=== PATIENT | female | born 1980 | race Caucasian/White ===

== ENCOUNTER 2016-07-10 13:57 | Emergency (ER) | payer OTHER ==
[2016-07-10 16:58] VITALS: BP 116/81
--- NOTE | 2016-07-10 17:09 | UC ---
Bite Injury/Animal HPI - HPI Summary HPI Summary: complaint of cat bite and scratch on her right arm that occurred today cat has been fully vaccinated against rabies right arm is slightly painful put antibiotic ointment on bite today took some aleve today for pain - History of Current Complaint Chief Complaint: UCLaceration Stated Complaint: CAT BITE Time Seen by Provider: 07/10/16 17:03 Hx Obtained From: Patient Hx Last Menstrual Period: now - Allergies/Home Medications Allergies/Adverse Reactions: Allergies Allergy/AdvReac Type Severity Reaction Status Date / Time Tramadol Allergy Dizziness Verified 07/10/16 15:20 Home Medications: Home Medications Cholecalciferol [Vitamin D] 5,000 unit PO 07/10/16 [History] FLUoxetine CAP* [Prozac CAP*] 07/10/16 [History] Lactobacillus [Probiotic] 1 cap PO 07/10/16 [History] Progesterone Micronized [Progesterone] 07/10/16 [History Confirmed 07/10/16] hydrOXYzine HCL TAB* [Atarax 10 MG TAB*] PRN 07/10/16 [History] PMH/Surg Hx/FS Hx/Imm Hx Previously Healthy: Yes - PCOS, endometriosis Endocrine History Of: Denies: Diabetes Cardiovascular History Of: Denies: Hypertension, Pacemaker/ICD GI/ History Of: Denies: Renal Disease - Surgical History Surgical History: Yes Surgery Procedure, Year, and Place: TMJ. TUBAL - Family History Known Family History: Positive: Hypertension Negative: Cardiac Disease, Diabetes - Social History Occupation: Employed Full-time Lives: With Family Alcohol Use: Occasionally Substance Use Type: Prescribed Smoking Status (MU): Never Smoked Tobacco - Immunization History Most Recent Tetanus Shot: 2008 Review of Systems Constitutional: Negative Skin: Negative Eyes: Negative ENT: Negative Respiratory: Negative Cardiovascular: Negative Gastrointestinal: Negative Genitourinary: Negative Motor: Negative Neurovascular: Negative Musculoskeletal: Other: - rifght arm pain- cat bite Neurological: Negative Psychological: Negative All Other Systems Reviewed And Are Negative: Yes Physical Exam Triage Information Reviewed: Yes Appearance: No Pain Distress, Well-Nourished Vital Signs: Initial Vital Signs Temp 97.6 F 07/10/16 15:14 Pulse 67 07/10/16 15:14 Resp 18 07/10/16 15:14 BP 112/69 07/10/16 15:14 Pulse Ox 100 07/10/16 15:14 Vital Signs Reviewed: Yes Eyes: Positive: Conjunctiva Clear ENT: Positive: Pharynx normal, TMs normal Neck: Positive: No Lymphadenopathy Respiratory: Positive: Lungs clear, Normal breath sounds, No respiratory distress, No accessory muscle use Cardiovascular: Positive: RRR, No Murmur, Pulses Normal Abdomen Description: Positive: Nontender, Soft Bowel Sounds: Positive: Present Musculoskeletal Exam: Normal Neurological Exam: Normal Psychological Exam: Normal Skin: Positive: Other - RUE- several puncture wounds on forearm, no edema or erythema surrounding bites Bite Injury Course/Dx - Differential Dx/Diagnosis Differential Diagnosis/HQI/PQRI: Puncture Provider Diagnoses: punture wound- right arm -cat bite Discharge - Discharge Plan Condition: Stable Disposition: HOME Prescriptions: Amoxicillin/Clavulanate TAB* [Augmentin TAB 875*] 875 mg PO BID #20 tab Patient Education Materials: Animal Bite (ED) Referrals: Brandon Goldman MD [Primary Care Provider] - Additional Instructions: Please take antibiotic as directed Increase fluids and rest please return to urgent care if you have any increase in pain, redness, swelling or develop fever Take acetaminophen or ibuprofen for fever or pain Please review your discharge instructions. If your symptoms do not improve please call your primary care provider or return to urgent care.
== END 2016-07-10 17:20 | disposition home or self-care (01) ==
LOC: UCEAST 13:57
DX: S51.831A Puncture wound without foreign body of right forearm, initial encounter (principal); W55.01XA Bitten by cat, initial encounter; Y93.9 Activity, unspecified; Y92.9 Unspecified place or not applicable; Z88.5 Allergy status to narcotic agent
CPT/HCPCS: 99212; G0463

== ENCOUNTER 2018-09-01 18:11 | Emergency (ER) | payer OTHER ==
[2018-09-01 19:04] VITALS: BP 145/99
[2018-09-01] MEDS ORDERED: Tetan/Diph/Pertus SYR(Tdap)* 0.5 ML SYR(BOOSTRIX) use SYR IM ONE (19:26)
--- NOTE | 2018-09-01 20:06 | UC ---
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 States she was recovering a patient from anesthesia when the dog panicked and bit her proximal forearm at the elbow. States she was wearing a protective sleeve at the time. Reports multiple bruises and abrasions at the site of the bite. States she has full painless range of motion to the elbow. Denies any numbness or tingling to the extremity. Last tetanus was in 2008. - History of Current Complaint Chief Complaint: UCBiteInjury Stated Complaint: DOG BITE Time Seen by Provider: 09/01/18 19:46 Hx Obtained From: Patient Hx Last Menstrual Period: now Pain Intensity: 4 - Allergies/Home Medications Allergies/Adverse Reactions: Allergies Allergy/AdvReac Type Severity Reaction Status Date / Time tramadol Allergy Difficulty Verified 09/01/18 19:05 Breathing Home Medications: Home Medications methylPREDNISolone TAB* [Medrol TAB*] 20 mg PO DAILY 09/01/18 [History Confirmed 09/01/18] PMH/Surg Hx/FS Hx/Imm Hx Previously Healthy: Yes - Denies significant PMH - Surgical History Surgical History: Yes Surgery Procedure, Year, and Place: TMJ. TUBAL - Family History Known Family History: Positive: Hypertension Negative: Cardiac Disease, Diabetes - Social History Occupation: Employed Full-time Lives: With Family Alcohol Use: Occasionally Substance Use Type: None Smoking Status (MU): Never Smoked Tobacco - Immunization History Most Recent Tetanus Shot: 2008 Review of Systems All Other Systems Reviewed And Are Negative: Yes Constitutional: Positive: Negative Skin: Positive: Bruising, Other - See HPI Respiratory: Positive: Negative Cardiovascular: Positive: Negative Gastrointestinal: Positive: Negative Genitourinary: Positive: Negative Motor: Negative: Weakness Neurovascular: Negative: Decreased Sensation Musculoskeletal: Negative: Arthralgia, Decreased ROM Neurological: Positive: Negative Is Patient Immunocompromised?: No Physical Exam - Summary Physical Exam Summary: GENERAL APPEARANCE: Well developed, well nourished, alert and cooperative, and appears to be in no acute distress. CARDIAC: Normal S1 and S2. No S3, S4 or murmurs. Rhythm is regular. There is no peripheral edema, cyanosis or pallor. Extremities are warm and well perfused. Capillary refill is less than 2 seconds. Peripheral pulses intact. LUNGS: Clear to auscultation without rales, rhonchi, wheezing or diminished breath sounds. ABDOMEN: Positive bowel sounds. Soft, nondistended, nontender. No guarding or rebound. No masses or hepatosplenomegally. MUSKULOSKELETAL: ROM intact to all extremities. No joint erythema or tenderness. Normal muscular development. Normal gait. SKIN: Several areas of ecchymosis with mild edema to the left anterior proximal forearm. There are several superficial linear abrasions. No puncture wounds or lacerations noted. Circulation and sensation intact. 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 States she was wearing a protective sleeve at the time. Reports multiple bruises and abrasions at the site of the bite. States she has full painless range of motion to the elbow. Denies any numbness or tingling to the extremity. Last tetanus was in 2008. Afebrile. Hypertensive otherwise vital signs stable. Patient had several areas of ecchymosis with mild edema to the left anterior proximal forearm. There are several superficial linear abrasions. No puncture wounds or lacerations noted. Circulation and sensation intact. Exam otherwise unremarkable. Discussed with the patient that due to the superficial nature of her injuries that she likely had a low risk for infection therefore patient electing not to start prophylactic antibiotics at this time. Her tetanus was updated. Wound care, anticipatory guidance, and warning symptoms are reviewed with the patient. Verbalizes understanding and agrees with plan of care. - Differential Dx/Diagnosis Differential Diagnosis/HQI/PQRI: Crush Injury, Laceration, Puncture Provider Diagnosis: Dog bite of left elbow Discharge - Sign-Out/Discharge Documenting (check all that apply): Patient Departure All imaging exams completed and their final reports reviewed: No Studies - Discharge Plan Condition: Stable Disposition: HOME Patient Education Materials: Animal Bite (ED) Referrals: Elaine Wang PA [Primary Care Provider] - If Needed Additional Instructions: Your injuries from the dog bite appear to be superficial and do not require any repair. Be sure to keep the wounds clean with a mild soap and water. He can apply a small amount of antibiotic ointment to the abrasions and cover with a gauze dressing. The dressing should be changed at least once a day or any time it becomes wet or soiled. You can use an Brice bandage or compression sleeve to the arm to help reduce any swelling. Use an [id number] pain medication such as acetaminophen (Tylenol) or ibuprofen (Advil, Motrin) according to directions as needed for any pain. Your tetanus was updated today. Be sure to notify your primary care provider so that they can update your records. Watch for signs of infection including fever greater than 100.5 F, severe pain that is not managed with pain medication, redness that spreads, red streaking up the arm, increased swelling, or pus draining from the wounds. Seek immediate medical attention should any of these occur. Your blood pressure was elevated in the clinic today. It is recommended that you follow up with your primary care provided within 4 weeks to have this rechecked. - Billing Disposition and Condition Condition: STABLE Disposition: Home - Attestation Statements Provider Attestation: Per institutional requirements, I have reviewed the chart, however, I was not consulted specifically or made aware of this patient by the midlevel provider. I did not personally evaluate, interact with , or disposition this patient.
== END 2018-09-01 20:10 | disposition home or self-care (01) ==
LOC: UCEAST 18:11
DX: S50.02XA Contusion of left elbow, initial encounter (principal); S50.312A Abrasion of left elbow, initial encounter; W54.0XXA Bitten by dog, initial encounter; Y93.K9 Activity, other involving animal care; Y92.89 Other specified places as the place of occurrence of the external cause; Z23 Encounter for immunization; Z88.5 Allergy status to narcotic agent
CPT/HCPCS: 90471; 90715; 99211; G0463